=== PATIENT | male | born 1990 | race African-American/Black ===

== ENCOUNTER 2022-02-22 17:38 | Emergency (ER) | payer MEDICAID ==
[~2022-02-22] VITALS: Ht 188 cm; Wt 100.0 kg
[2022-02-22] MEDS ORDERED: KETOROLAC 30MG/ML VIAL IV STA (18:15)
[2022-02-22 18:50] LABS: BASOPHILS % 0.3 % (0.0-2.0); EOSINOPHILS % 0.2 % (0.0-5.0); HEMATOCRIT. 41.4 % (42.0-52.0); HEMOGLOBIN. 13.9 g/dL (14.0-18.0); LYMPHOCYTES % 18.4 % (20.0-50.0); MEAN CORPUSCULAR HEMOGLOBIN 29.8 pg (28.0-32.0); MEAN CORPUSCULAR VOLUME 88.7 fL (80.0-94.0); MONOCYTES % 6.8 % (2.0-8.0); NEUTROPHILS % 74.3 % (40.0-76.0); PLATELET 228 x1000/uL (130-400); RED BLOOD CELL COUNT 4.67 mill/uL (4.7-6.1)
[2022-02-22 18:53] LABS: CHLORIDE 106 mEq/L (98-107)
[2022-02-22 18:56] LABS: INR 1.2
[2022-02-22] MEDS ORDERED: IOHEXOL-350 100 ML BOTTLE ONE (21:53)
[2022-02-22] MEDS ORDERED: ESMOLOL 2500MG PREMIX 250 ML IV ONE (22:15)
[2022-02-22] MEDS ORDERED: ESMOLOL 2500MG PREMIX 250 ML IV NR (22:30)
[2022-02-22] MEDS ORDERED: MIDAZOLAM HCL 2 MG/2 ML VIAL IV ONE (23:45)
[2022-02-23] MEDS ORDERED: MORPHINE SULFATE 4 MG/ML CPJ (NOT FOR IM USE) IV ONE ×2 (00:15→03:30)
[2022-02-23] MEDS ORDERED: NICARDIPINE 50 MG in SODIUM CHLORIDE 0.9% 230 ML IV STA ×2 (00:22→00:26)
[2022-02-23] MEDS ORDERED: NICARDIPINE 50 MG in SODIUM CHLORIDE 0.9% 230 ML IV NR (10:00)
[2022-02-23] MEDS ORDERED: ESMOLOL 2500MG PREMIX 250 ML IV ONE ×2 (12:00→16:30)
[2022-02-23] MEDS ORDERED: ESMOLOL 2500MG PREMIX 250 ML IV NR (12:30)
[2022-02-23] MEDS ORDERED: METOPROLOL TARTRATE 5MG/5ML VIAL IV ONE (16:15)
[2022-02-23] MEDS ORDERED: NICARDIPINE 40MG/200ML PREMIX 200 ML IV PRN (17:00)
[2022-02-23] MEDS ORDERED: MORPHINE SULFATE 4 MG/ML CPJ (NOT FOR IM USE) IV NR (17:00)
[2022-02-23 17:03] VITALS: BP 99/56
== END 2022-02-23 17:45 | disposition short-term general hospital (02) ==
LOC: ER 17:38
DX: I71.01 Dissection of thoracic aorta (principal); R00.0 Tachycardia, unspecified; Z20.822 Contact with and (suspected) exposure to COVID-19
CPT/HCPCS: 36415; 71045; 71275; 74174; 80053; 82962; 84484; 85025; 85610; 86850; 86900; 86901; 87426; 96365; 96375; 99291; J1885; J2250; J2270; J3490; J7050; Q9967; Z7610